=== PATIENT | male | born 1950 | race Caucasian/White ===

== ENCOUNTER 2019-10-13 09:01 | Outpatient (CLI) | payer MEDICARE, OTHER ==
[2019-10-13 09:34] LABS: BASOPHILS % (AUTO) 0.6 %; EOSINOPHILS # (AUTO) 0.1 10^3/uL (0.0-0.7); HGB - HEMOGLOBIN 15.4 g/dL (14.0-18.0); LYMPHOCYTES # (AUTO) 1.6 10^3/uL (1.5-3.5); LYMPHOCYTES % (AUTO) 24.4 %; MEAN CORPUSCULAR HEMOGLOBIN 29.4 pg (27.0-31.0); MEAN CORPUSCULAR HGB CONC 33.9 g/dL (32.0-36.0); MEAN CORPUSCULAR VOLUME 86.8 fL (80.0-94.0); MEAN PLATELET VOLUME 10.7 fL (7.4-11.4); MONOCYTES # (AUTO) 0.5 10^3/uL (0.0-1.0); MONOCYTES % (AUTO) 6.8 %; NEUTROPHILS # (AUTO) 4.3 10^3/uL (1.5-6.6); NEUTROPHILS % (AUTO) 65.7 %; PLT - PLATELET COUNT 172 10^3/uL (130-450); RED BLOOD COUNT 5.23 10^6/uL (4.70-6.10); RED CELL DISTRIBUTION WIDTH 14.3 % (12.0-15.0); WHITE BLOOD COUNT 6.6 x10^3/uL (4.8-10.8)
[2019-10-13 09:50] LABS: BUN - BLOOD UREA NITROGEN 21 mg/dL (6-20); CALCIUM 9.7 mg/dL (8.5-10.3); CARBON DIOXIDE - CO2 28 mmol/L (21-32); CHLORIDE 96 mmol/L (101-111); CHOL/HDL RATIO 4.4 (<5.0); CHOLESTEROL 127 mg/dL; CREATININE 0.8 mg/dL (0.6-1.2); GFR - MDRD 96 (>89); GLUCOSE 154 mg/dL (70-100); HDL CHOLESTEROL 29 mg/dL; SODIUM 138 mmol/L (135-145)
[2019-10-13 09:56] LABS: HB2 TOTAL 15.3 g/dL; HEMOGLOBIN A1C 0.86 g/dL; HEMOGLOBIN A1C % 7.3 % (4.6-6.2)
[2019-10-13 11:29] LABS: LDL CHOLESTEROL,DIRECT 42 mg/dL; LDLD/HDL RATIO 1.4 (<3.6)
== END 2019-10-13 09:02 | disposition home or self-care (01) ==
LOC: LAB 09:01
DX: E11.40 Type 2 diabetes mellitus with diabetic neuropathy, unspecified (principal); E78.5 Hyperlipidemia, unspecified; I10 Essential (primary) hypertension; E78.1 Pure hyperglyceridemia; R53.83 Other fatigue; Z12.5 Encounter for screening for malignant neoplasm of prostate
CPT/HCPCS: 36415; 80048; 80061; 83036; 83721; 85025; G0103; 84153

== ENCOUNTER 2019-12-26 19:17 | Outpatient (CLI) | payer MEDICARE, OTHER | END 2019-12-26 19:18 | disposition home or self-care (01) | LOC: COV 19:17 | PROVIDERS: ATTEND Family Medicine | DX: R50.9 Fever, unspecified (principal); J02.9 Acute pharyngitis, unspecified | CPT/HCPCS: 81599 ==

== ENCOUNTER 2021-03-15 08:15 | Outpatient (CLI) | payer MEDICARE, OTHER ==
[2021-03-15 08:54] LABS: BASOPHILS % (AUTO) 0.5 %; EOSINOPHILS # (AUTO) 0.2 10^3/uL (0.0-0.7); EOSINOPHILS % (AUTO) 3.1 %; HCT - HEMATOCRIT 44.2 % (42.0-52.0); HGB - HEMOGLOBIN 15.1 g/dL (14.0-18.0); LYMPHOCYTES # (AUTO) 1.7 10^3/uL (1.5-3.5); LYMPHOCYTES % (AUTO) 27.3 %; MEAN CORPUSCULAR HEMOGLOBIN 29.3 pg (27.0-31.0); MEAN CORPUSCULAR HGB CONC 34.2 g/dL (32.0-36.0); MEAN CORPUSCULAR VOLUME 85.7 fL (80.0-94.0); MONOCYTES # (AUTO) 0.4 10^3/uL (0.0-1.0); MONOCYTES % (AUTO) 6.3 %; NEUTROPHILS # (AUTO) 3.9 10^3/uL (1.5-6.6); NEUTROPHILS % (AUTO) 62.3 %; PLT - PLATELET COUNT 168 10^3/uL (130-450); RED BLOOD COUNT 5.16 10^6/uL (4.70-6.10); RED CELL DISTRIBUTION WIDTH 14.1 % (12.0-15.0); WHITE BLOOD COUNT 6.2 x10^3/uL (4.8-10.8)
[2021-03-15 09:05] LABS: ALBUMIN 4.2 g/dL (3.2-5.5); ALBUMIN/GLOBULIN RATIO 1.4 (1.0-2.2); BILIRUBIN,TOTAL 0.8 mg/dL (0.2-1.0); CALCIUM 9.9 mg/dL (8.5-10.3); CREATININE 0.7 mg/dL (0.6-1.2); POTASSIUM 3.9 mmol/L (3.5-5.0); TOTAL PROTEIN 7.3 g/dL (6.7-8.2)
[2021-03-15 09:17] LABS: MICROALBUMIN,URINE 28.8 mg/dL (0-300.0)
[2021-03-15 11:56] LABS: ESTIMATED AVERAGE GLUCOSE 160 mg/dL (70-100); HEMOGLOBIN A1c% 7.2 % (4.27-6.07)
== END 2021-03-15 08:16 | disposition home or self-care (01) ==
LOC: LAB 08:15
PROVIDERS: ATTEND Family Medicine
DX: Z00.00 Encounter for general adult medical examination without abnormal findings (principal); D12.6 Benign neoplasm of colon, unspecified; F51.02 Adjustment insomnia; J45.909 Unspecified asthma, uncomplicated; K63.5 Polyp of colon; L84 Corns and callosities; E11.40 Type 2 diabetes mellitus with diabetic neuropathy, unspecified; Z72.820 Sleep deprivation; K57.92 Diverticulitis of intestine, part unspecified, without perforation or abscess without bleeding; R04.0 Epistaxis; N52.9 Male erectile dysfunction, unspecified; R53.83 Other fatigue; K21.9 Gastro-esophageal reflux disease without esophagitis; E78.5 Hyperlipidemia, unspecified; I10 Essential (primary) hypertension; E78.1 Pure hyperglyceridemia; G47.33 Obstructive sleep apnea (adult) (pediatric); R80.9 Proteinuria, unspecified
CPT/HCPCS: 36415; 80053; 82043; 82570; 83036; 85025

== ENCOUNTER 2021-03-27 08:30 | Day surgery (SDC) | payer MEDICARE, OTHER ==
[2021-03-27] MEDS ORDERED: LACTATED RINGERS 1,000 ML IV ONE (08:59)
[2021-03-27] MEDS ORDERED: fentaNYL 250 MCG/5 ML VIAL ONE (09:51)
[2021-03-27] MEDS ORDERED: MIDAZOLAM 2 MG/2 ML VIAL ONE ×2 (09:51)
[2021-03-27] MEDS ORDERED: LACTATED RINGERS 500 ML IV ONE (10:29)
[2021-03-27 10:54] VITALS: BP 152/95
== END 2021-03-27 08:31 | disposition home or self-care (01) ==
LOC: SDS 08:30
PROVIDERS: ATTEND Surgery
DX: Z12.11 Encounter for screening for malignant neoplasm of colon (principal); K64.8 Other hemorrhoids; K64.4 Residual hemorrhoidal skin tags; K57.30 Diverticulosis of large intestine without perforation or abscess without bleeding; Z86.010 Personal history of colon polyps
CPT/HCPCS: G0105; J3010; J7120

== ENCOUNTER 2021-05-16 08:14 | Outpatient (CLI) | payer MEDICARE, OTHER ==
[2021-05-16 08:45] LABS: BASOPHILS % (AUTO) 0.5 %; EOSINOPHILS # (AUTO) 0.2 10^3/uL (0.0-0.7); EOSINOPHILS % (AUTO) 2.7 %; HCT - HEMATOCRIT 42.5 % (42.0-52.0); HGB - HEMOGLOBIN 14.9 g/dL (14.0-18.0); LYMPHOCYTES # (AUTO) 1.4 10^3/uL (1.5-3.5); LYMPHOCYTES % (AUTO) 24.9 %; MEAN CORPUSCULAR HEMOGLOBIN 30.1 pg (27.0-31.0); MEAN CORPUSCULAR HGB CONC 35.1 g/dL (32.0-36.0); MEAN CORPUSCULAR VOLUME 85.9 fL (80.0-94.0); MEAN PLATELET VOLUME 10.2 fL (7.4-11.4); MONOCYTES # (AUTO) 0.4 10^3/uL (0.0-1.0); MONOCYTES % (AUTO) 6.5 %; NEUTROPHILS # (AUTO) 3.6 10^3/uL (1.5-6.6); NEUTROPHILS % (AUTO) 64.9 %; PLT - PLATELET COUNT 169 10^3/uL (130-450); RED BLOOD COUNT 4.95 10^6/uL (4.70-6.10); RED CELL DISTRIBUTION WIDTH 14.1 % (12.0-15.0); WHITE BLOOD COUNT 5.5 x10^3/uL (4.8-10.8)
[2021-05-16 09:12] LABS: ALBUMIN 4.2 g/dL (3.2-5.5); ALBUMIN/GLOBULIN RATIO 1.4 (1.0-2.2); ALKALINE PHOSPHATASE 73 IU/L (42-121); ALT ALANINE AMINOTRANSFERASE 41 IU/L (10-60); AST ASPARTATE AMINOTRANSFERASE 25 IU/L (10-42); BUN - BLOOD UREA NITROGEN 25 mg/dL (6-20); CALCIUM 9.6 mg/dL (8.5-10.3); CARBON DIOXIDE - CO2 26 mmol/L (21-32); CHLORIDE 101 mmol/L (101-111); CHOL/HDL RATIO 6.1 (<5.0); CHOLESTEROL 178 mg/dL; CREATININE 0.9 mg/dL (0.6-1.2); GFR - MDRD 83 (>89); GLUCOSE 193 mg/dL (70-100); HDL CHOLESTEROL 29 mg/dL; POTASSIUM 3.7 mmol/L (3.5-5.0); SODIUM 139 mmol/L (135-145); TOTAL PROTEIN 7.2 g/dL (6.7-8.2); TRIGLYCERIDES 800 mg/dL
[2021-05-16 10:27] LABS: LDL CHOLESTEROL,DIRECT 33 mg/dL; LDLD/HDL RATIO 1.1 (<3.6)
[2021-05-16 10:36] LABS: ESTIMATED AVERAGE GLUCOSE 148 mg/dL (70-100); HEMOGLOBIN A1c% 6.8 % (4.27-6.07)
== END 2021-05-16 08:15 | disposition home or self-care (01) ==
LOC: LAB 08:14
PROVIDERS: ATTEND Family Medicine
DX: E11.9 Type 2 diabetes mellitus without complications (principal); E78.5 Hyperlipidemia, unspecified; I10 Essential (primary) hypertension; R97.20 Elevated prostate specific antigen [PSA]; R53.83 Other fatigue
CPT/HCPCS: 36415; 80053; 80061; 83036; 83721; 84153; 85025

== ENCOUNTER 2023-03-12 08:19 | Outpatient (CLI) | payer MEDICARE, OTHER ==
[2023-03-12 08:35] LABS: BASOPHILS % (AUTO) 0.8 %; EOSINOPHILS # (AUTO) 0.1 10^3/uL (0.0-0.7); EOSINOPHILS % (AUTO) 2.3 %; HCT - HEMATOCRIT 41.1 % (42.0-52.0); HGB - HEMOGLOBIN 14.8 g/dL (14.0-18.0); LYMPHOCYTES # (AUTO) 1.3 10^3/uL (1.5-3.5); LYMPHOCYTES % (AUTO) 27.5 %; MEAN CORPUSCULAR HEMOGLOBIN 29.9 pg (27.0-31.0); MEAN PLATELET VOLUME 10.2 fL (7.4-11.4); MONOCYTES # (AUTO) 0.3 10^3/uL (0.0-1.0); MONOCYTES % (AUTO) 6.3 %; NEUTROPHILS # (AUTO) 2.9 10^3/uL (1.5-6.6); NEUTROPHILS % (AUTO) 62.3 %; PLT - PLATELET COUNT 161 10^3/uL (130-450); RED BLOOD COUNT 4.95 10^6/uL (4.70-6.10); RED CELL DISTRIBUTION WIDTH 13.7 % (12.0-15.0); WHITE BLOOD COUNT 4.7 x10^3/uL (4.8-10.8)
[2023-03-12 09:07] LABS: MICROALBUMIN,URINE 44.3 mg/dL (0-300.0)
[2023-03-12 09:31] LABS: ALBUMIN 3.6 g/dL (3.2-5.5); ALBUMIN/GLOBULIN RATIO 1.1 (1.0-2.2); ALKALINE PHOSPHATASE 78 IU/L (42-121); ALT ALANINE AMINOTRANSFERASE 37 IU/L (10-60); AST ASPARTATE AMINOTRANSFERASE 23 IU/L (10-42); BILIRUBIN,TOTAL 0.8 mg/dL (0.2-1.0); BUN - BLOOD UREA NITROGEN 26 mg/dL (6-20); CALCIUM 9.4 mg/dL (8.5-10.3); CARBON DIOXIDE - CO2 25 mmol/L (21-32); CHLORIDE 95 mmol/L (101-111); CHOL/HDL RATIO 12.9 (<5.0); CHOLESTEROL 347 mg/dL; GFR - MDRD 73 (>89); GLUCOSE 324 mg/dL (70-100); HDL CHOLESTEROL 27 mg/dL; POTASSIUM 3.6 mmol/L (3.5-5.0); SODIUM 131 mmol/L (135-145); TOTAL PROTEIN 6.8 g/dL (6.7-8.2)
[2023-03-12 09:39] LABS: TRIGLYCERIDES > 2000 mg/dL
[2023-03-12 09:57] LABS: LDL CHOLESTEROL,DIRECT 18 mg/dL; LDLD/HDL RATIO 0.7 (<3.6)
[2023-03-12 11:36] LABS: ESTIMATED AVERAGE GLUCOSE 237 mg/dL (70-100); HEMOGLOBIN A1c% 9.9 % (4.27-6.07)
== END 2023-03-12 08:20 | disposition home or self-care (01) ==
LOC: LAB 08:19
PROVIDERS: ATTEND Family Medicine
DX: I10 Essential (primary) hypertension (principal); E11.9 Type 2 diabetes mellitus without complications; R53.83 Other fatigue; E78.5 Hyperlipidemia, unspecified; E78.1 Pure hyperglyceridemia; R80.9 Proteinuria, unspecified
CPT/HCPCS: 36415; 80053; 80061; 82043; 82570; 83036; 83721; 84443; 85025

== ENCOUNTER 2023-07-23 08:28 | Outpatient (CLI) | payer MEDICARE, OTHER ==
[2023-07-23 09:05] LABS: ALBUMIN 4.3 g/dL (3.2-5.5); ALBUMIN/GLOBULIN RATIO 1.5 (1.0-2.2); BILIRUBIN,TOTAL 0.6 mg/dL (0.2-1.0); CALCIUM 9.9 mg/dL (8.5-10.3); POTASSIUM 3.8 mmol/L (3.5-4.5); TOTAL PROTEIN 7.1 g/dL (6.4-8.9)
[2023-07-23 12:23] LABS: ESTIMATED AVERAGE GLUCOSE 192 mg/dL (70-100); HEMOGLOBIN A1c% 8.3 % (4.27-6.07)
== END 2023-07-23 08:29 | disposition home or self-care (01) ==
LOC: LAB 08:28
PROVIDERS: ATTEND Family Medicine
DX: E11.9 Type 2 diabetes mellitus without complications (principal); R53.83 Other fatigue; I10 Essential (primary) hypertension
CPT/HCPCS: 36415; 80053; 83036

== ENCOUNTER 2023-10-15 10:34 | Outpatient (CLI) | payer MEDICARE, OTHER ==
--- NOTE | 2023-10-15 12:47 | XRAY Report ---
PROCEDURE: Shoulder 2+V LT INDICATIONS: SHOULDER PAIN TECHNIQUE: 3 views of the shoulder were acquired. COMPARISON: None. FINDINGS: Bones: No fractures or dislocations. Mild degenerative changes of the glenohumeral and acromioclavi cular joints. No suspicious bony lesions. Visualized ribs appear intact. Soft tissues: Tiny focus of calcification near the greater tuberosity.. The visualized lungs are wi thin normal limits. IMPRESSION: No acute bony abnormality. Mild degenerative changes of the glenohumeral and acromioclavicular joints . Possible calcific tendinitis of the rotator cuff. Reviewed by: Danilo Newton MD on 10/15/2023 12:46 PM PST Approved by: Danilo Newton MD on 10/15/2023 12:46 PM [facility] Station ID: [id number]
== END 2023-10-15 10:35 | disposition home or self-care (01) ==
LOC: DI 10:34
PROVIDERS: ATTEND Family Medicine
DX: M19.012 Primary osteoarthritis, left shoulder (principal)

== ENCOUNTER 2023-12-01 10:27 | Emergency (ER) | payer MEDICARE, OTHER ==
[2023-12-01 11:22] LABS: BASOPHILS % (AUTO) 0.5 %; EOSINOPHILS # (AUTO) 0.1 10^3/uL (0.0-0.7); EOSINOPHILS % (AUTO) 1.2 %; HCT - HEMATOCRIT 44.8 % (42.0-52.0); HGB - HEMOGLOBIN 15.5 g/dL (14.0-18.0); LYMPHOCYTES # (AUTO) 1.6 10^3/uL (1.5-3.5); LYMPHOCYTES % (AUTO) 23.7 %; MEAN CORPUSCULAR HEMOGLOBIN 28.5 pg (27.0-31.0); MEAN CORPUSCULAR HGB CONC 34.6 g/dL (32.0-36.0); MEAN CORPUSCULAR VOLUME 82.4 fL (80.0-94.0); MEAN PLATELET VOLUME 10.4 fL (7.4-11.4); MONOCYTES # (AUTO) 0.4 10^3/uL (0.0-1.0); MONOCYTES % (AUTO) 5.6 %; NEUTROPHILS # (AUTO) 4.5 10^3/uL (1.5-6.6); NEUTROPHILS % (AUTO) 68.4 %; PLT - PLATELET COUNT 219 10^3/uL (130-450); RED BLOOD COUNT 5.44 10^6/uL (4.70-6.10); RED CELL DISTRIBUTION WIDTH 13.8 % (12.0-15.0); WHITE BLOOD COUNT 6.6 x10^3/uL (4.8-10.8)
[2023-12-01 11:36] LABS: ALBUMIN 3.7 g/dL (3.2-5.5); ALBUMIN/GLOBULIN RATIO 1.3 (1.0-2.2); BILIRUBIN,TOTAL 0.7 mg/dL (0.2-1.0); CALCIUM 9.9 mg/dL (8.5-10.3); CREATININE 1.1 mg/dL (0.6-1.3); POTASSIUM 3.7 mmol/L (3.5-4.5); TOTAL PROTEIN 6.6 g/dL (6.4-8.9)
--- NOTE | 2023-12-01 11:58 | ED Physician Documentation ---
History of Present Illness - Stated complaint Stated Complaint: LWR BACK PX - Chief complaint Chief Complaint: Abd Pain - Additonal information Additional information: 73-year-old female with history of hypertension, hypercholesterolemia, type 2 diabetes, GERD presents emergency department for left flank pain. Patient says is been going on for about a week now is very localized to 1 specific point in his left flank area, the pain comes and goes but he has been noticing over the last couple days the pain has not been coming and going is been staying constantly. He said that he is taken multiple doses of Tylenol with little to no relief he had some leftover oxycodone from previous surgery he said that he took 1 of those which did significantly help with the pain but he tries to avoid opioids at all costs. He denies any fevers or chills no change in urinary frequency or habits no diarrhea. He does endorse some nausea vomiting due to the severity of the pain he has no history of kidney stones or kidney disease PD PAST MEDICAL HISTORY - Past Medical History Cardiovascular: Hypertension, High cholesterol Respiratory: None Endocrine/Autoimmune: Type 2 diabetes GI: GERD, Colon polyps, Diverticulitis : Frequency Psych: None Musculoskeletal: Osteoarthritis Derm: None - Past Surgical History Past Surgical History: Yes General: Colonoscopy HEENT: Tonsil/Adenoidectomy Derm: Skin cancer surgery - Present Medications Home Medications: Ambulatory Orders Medication Instructions Recorded Confirmed Amlodipine Besylate [Norvasc] 5 mg PO 03/27/21 Aspirin [Chambers Aspirin] 81 mg PO DAILY 03/27/21 03/27/21 Atorvastatin Calcium [Lipitor] 80 mg PO DAILY 03/27/21 03/27/21 Empagliflozin [Jardiance] 1 tab PO DAILY 03/27/21 03/27/21 Glimepiride [Amaryl] 1 tab PO DAILY 03/27/21 03/27/21 Losartan/Hydrochlorothiazide 1 tab PO DAILY 03/27/21 03/27/21 [Hyzaar 100-25 Tablet] Metformin HCl [Metformin ER 2 tab PO BID 03/27/21 03/27/21 Gastric] Metoprolol Succinate [Kapspargo 1 tab PO DAILY 03/27/21 03/27/21 Sprinkle] Pantoprazole [Protonix] 40 mg PO DAILY 03/27/21 03/27/21 hydroCHLOROthiazide [Hydrodiuril] 1 tab PO DAILY 03/27/21 03/27/21 Tamsulosin [Flomax] 0.4 mg PO DAILY #30 12/01/23 oxyCODONE [Roxicodone] 5 mg PO Q4-6H PRN #15 tablet 12/01/23 - Allergies Allergies/Adverse Reactions: Allergies Allergy/AdvReac Type Severity Reaction Status Date / Time tetracycline AdvReac Nausea Verified 12/01/23 10:58 - Social History Does the pt smoke?: No Smoking Status: Never smoker Does the pt drink ETOH?: No Does the pt have substance abuse?: No - POLST Patient has POLST: No PD ED PE NORMAL - Vitals Vital signs reviewed: Yes - General General: Alert and oriented X 3, No acute distress, Well developed/nourished - HEENT HEENT: Atraumatic, PERRL - Neck Neck: No bony TTP - Cardiac Cardiac: RRR, No murmur, No gallop - Respiratory Respiratory: No respiratory distress, Clear bilaterally - Abdomen Abdomen: Normal bowel sounds - Back Back: Other (left CVA tenderness) - Extremities Extremities: No deformity, No edema - Psych Psych: Normal mood, Normal affect Results - Vitals Vitals: Vital Signs - 24 hr 12/01/23 12/01/23 12/01/23 10:47 13:11 14:12 Temperature 36.6 C Heart Rate 109 H 108 H 97 Respiratory 18 25 H 26 H Rate Blood Pressure 218/127 H 181/117 H O2 Saturation 99 99 97 Oxygen O2 Source Room air - Labs Labs: Laboratory Tests 12/01/23 12/01/23 12/01/23 11:15 11:15 11:15 WBC 6.6 RBC 5.44 Hgb 15.5 Hct 44.8 MCV 82.4 MCH 28.5 MCHC 34.6 RDW 13.8 Plt Count 219 MPV 10.4 Neut # (Auto) 4.5 Lymph # (Auto) 1.6 Wheeler # (Auto) 0.4 Eos # (Auto) 0.1 Baso # (Auto) 0.0 Absolute Nucleated RBC 0.00 Nucleated RBC % 0.0 Sodium 131 L Potassium 3.7 Chloride 96 L Carbon Dioxide 23 Anion Gap 12.0 BUN 25 H Creatinine 1.1 Estimated GFR (MDRD) 66 L Glucose 285 H Calcium 9.9 Magnesium 1.7 Total Bilirubin 0.7 AST 16 ALT 25 Alkaline Phosphatase 69 Total Protein 6.6 Albumin 3.7 Globulin 2.9 Albumin/Globulin Ratio 1.3 Lipase 51 - Rads (name of study) CT KUB Relevant Findings:: Final report received, EMP independent interpretation of test, Other (Multiple findings, hepatic steatosis, gallstones, diverticulosis, umbilical hernia, bilateral inguinal hernia, right renal mass 3.5 cm, no hydronephrosis, left 7 mm kidney stone in mid) PD Medical Decision Making - ED course ED course: 73-year-old male presents emergency department for left flank pain. CT was complete which found multiple incidental findings including hepatic steatosis, cholelithiasis without cholecystitis, diverticulosis, umbilical hernia, bilateral inguinal hernia. Most pertinent finding was that patient was found to have bilateral renal cyst, a right 7 mm kidney stone in the midpole as well as a right kidney mass measuring about 3.5 cm. Patient was informed of these findings he was told that he needs to follow-up with nephrology soon as possible outpatient for further workup and evaluation of possible neoplasm.Labs are collected there is no leukocytosis his sodium was found to be slightly on the low side, 131 he was given 1 L of IV fluids for his BUN of 25, GFR 66. Patient has close contact with his primary care provider he was told to follow-up with them soon as possible about today's findings and he was given nephrology contact information for further evaluation.ER return precautions given to patient he was sent home on Flomax and pain medications. I am prescribing a short course of short-acting opioid pain medication for this patient. I have reviewed the patients STICK PULLER and no concerning findings were noted. I have discussed that the opioids are for short term therapy only, and will not be refilled from the ED. Departure - Departure Disposition: 01 Home, Self Care Clinical Impression: Diverticulosis, Hepatic steatosis, Renal cyst, Renal calculi, Right renal mass, Hypertension Cholelithiasis Qualifiers: Cholelithiasis location: gallbladder Cholecystitis presence: without cholecystitis Biliary obstruction: without biliary obstruction Qualified Code(s): K80.20 - Calculus of gallbladder without cholecystitis without obstruction Umbilical hernia Qualifiers: Obstruction and gangrene presence: without obstruction or gangrene Qualified Code(s): K42.9 - Umbilical hernia without obstruction or gangrene Inguinal hernia Qualifiers: Obstruction and gangrene presence: without obstruction or gangrene Laterality: bilateral Recurrence: not specified as recurrent Qualified Code(s): K40.20 - Bilateral inguinal hernia, without obstruction or gangrene, not specified as recurrent Instructions: Kidney Stones Follow-Up: Perez Skinner MD [Provider Admit Priv/Credential] - Prescriptions: Tamsulosin [Flomax] 0.4 mg PO DAILY #30 oxyCODONE [Roxicodone] 5 mg PO Q4-6H PRN #15 tablet PRN Reason: Pain >8 Comments: Thank you for trusting us with your care we have completed a CT scan and have found quite a few incidental findings as listed below -Hepatic steatosis (fatty liver disease) -Cholelithiasis (gallstones) -Diverticulosis -Umbilical hernia -Bilateral inguinal hernia In regards to your kidneys we have found that you have cysts on both right and left kidneys, a 7 mm stone on your right kidney ureter and a 3.5 cm right kidney mass that we are concerned could be possible cancer. As we discussed it is very important that you follow-up with nephrology outpatient I have attached Dr. Skinner's contact information below and I would strongly encourage you to follow-up with his clinic outpatient. I would also encourage you to follow-up with your primary care provider about the above findings and as well as a possible urology referral. I have attached below the radiology findings for your personal records as well as rediscussed with your primary care provider. I am prescribing a short course of short-acting opioid pain medication for this patient. I have reviewed the patients STICK PULLER and no concerning findings were noted. I have discussed that the opioids are for short term therapy only, and will not be refilled from the ED. PT NAME: SHANIA GARDNER MR#: [id number] REG ER/ED AGE: 73 CI DT/TM: 12/01/23 PCP: FUNMILAYO MORRISON DO : 1950 ATT: SEX: M ORD: [facility] Cevallos CHECKROOM ATTENDANT EXAM: [id number] CT/KUB ([id number]) PROCEDURE: KUB INDICATIONS: left flank pain TECHNIQUE: A CT scan of the abdomen and pelvis was performed without the use of intravenous contrast. Images were recorded and evaluated at appropriate window settings. Reformats: coronal and sagittal. For radiation dose reduction, the following was used: automated exposure control, adjustment of mA and/or kV according to patient size. COMPARISON: None. FINDINGS: Image quality: Diagnostic. Kidneys and ureters: There is suggestion of large left peripelvic renal cyst measures 4.9 x 5.7 x 4.5 cm in size series 8 image 140 and series 4 image 145. 7 mm nonobstructing stone in mid pole right kidney. No hydronephrosis or hydroureter is seen. There is no significant perinephric fat stranding. Exophytic solid-appearing lesion involving mid to lower pole of right kidney measures 3.6 x 3.4 x 3.8 cm in size series 8 image 206 and series 4 image 129. Simple appearing exophytic cyst in upper pole right kidney is seen measures 1.8 cm in size series 4 image 143. Bladder: Bladder wall thickness is normal, accounting for underdistention. No calcified bladder stones. OTHER: Lower chest: Unremarkable. Liver: No contour-deforming mass. There is hepatomegaly. Moderate to severe hepatic steatosis is seen. Gallbladder and biliary tree: 4-5 calcified stones are seen in dependent portion of gallbladder lumen. No gallbladder wall thickening or pericholecystic fluid. Spleen: No splenomegaly. Pancreas: No pancreatic ductal dilation. Adrenals: No adrenal nodule. Stomach, bowel and peritoneum: No bowel distension. No pathologic free fluid. Appendix is visualized and is normal in size and appearance. Sigmoid diverticulosis is seen without sigmoid colon wall thickening or mesenteric fat stranding. Lymph nodes: No central or retroperitoneal adenopathy. Vessels: No infrarenal aortic aneurysm. Reproductive organs: Unremarkable. Pelvic lymph nodes: No adenopathy by size criteria. Bones: No aggressive osseous abnormality. Other: Small to moderate size umbilical hernia is seen containing fat only. Small bilateral inguinal hernia is seen containing fat only. IMPRESSION: 1. Simple appearing left peripelvic renal cyst. No left-sided hydronephrosis or hydroureter. 2. Nonobstructing stone in right renal pelvis. No right-sided hydronephrosis or hydroureter. Simple cyst in upper pole right kidney. 3.6 x 3.4 x 3.8 cm exophytic structure in lower pole right kidney and is isodense to adjacent right renal parenchyma. Finding is concerning for neoplastic process such as renal cell carcinoma. 3. Normal-appearing urinary bladder. 4. Hepatomegaly and moderate hepatic steatosis, no discrete hepatic lesion. Cholelithiasis without CT evidence of acute cholecystitis. 5. Normal appendix. No bowel obstruction or abnormal bowel wall thickening. Sigmoid diverticulosis without evidence of acute diverticulitis. No free fluid of free air. Reviewed by: Alec Haddad MD on 12/01/2023 12:46 PM PDT Approved by: Alec Haddad MD on 12/01/2023 12:46 PM PDT Forms: PCP List Discharge Date/Time: 12/01/23 14:19
--- NOTE | 2023-12-01 12:47 | CT Report ---
PROCEDURE: KUB INDICATIONS: left flank pain TECHNIQUE: A CT scan of the abdomen and pelvis was performed without the use of intravenous contrast. Images we re recorded and evaluated at appropriate window settings. Reformats: coronal and sagittal. For radiat ion dose reduction, the following was used: automated exposure control, adjustment of mA and/or kV ac cording to patient size. COMPARISON: None. FINDINGS: Image quality: Diagnostic. Kidneys and ureters: There is suggestion of large left peripelvic renal cyst measures 4.9 x 5.7 x 4.5 cm in size series 8 image 140 and series 4 image 145. 7 mm nonobstructing stone in mid pole right ki dney. No hydronephrosis or hydroureter is seen. There is no significant perinephric fat stranding. Ex ophytic solid-appearing lesion involving mid to lower pole of right kidney measures 3.6 x 3.4 x 3.8 c m in size series 8 image 206 and series 4 image 129. Simple appearing exophytic cyst in upper pole ri ght kidney is seen measures 1.8 cm in size series 4 image 143. Bladder: Bladder wall thickness is normal, accounting for underdistention. No calcified bladder stone s. OTHER: Lower chest: Unremarkable. Liver: No contour-deforming mass. There is hepatomegaly. Moderate to severe hepatic steatosis is seen . Gallbladder and biliary tree: 4-5 calcified stones are seen in dependent portion of gallbladder lumen . No gallbladder wall thickening or pericholecystic fluid. Spleen: No splenomegaly. Pancreas: No pancreatic ductal dilation. Adrenals: No adrenal nodule. Stomach, bowel and peritoneum: No bowel distension. No pathologic free fluid. Appendix is visualized and is normal in size and appearance. Sigmoid diverticulosis is seen without sigmoid colon wall thick ening or mesenteric fat stranding. Lymph nodes: No central or retroperitoneal adenopathy. Vessels: No infrarenal aortic aneurysm. Reproductive organs: Unremarkable. Pelvic lymph nodes: No adenopathy by size criteria. Bones: No aggressive osseous abnormality. Other: Small to moderate size umbilical hernia is seen containing fat only. Small bilateral inguinal hernia is seen containing fat only. IMPRESSION: 1. Simple appearing left peripelvic renal cyst. No left-sided hydronephrosis or hydroureter. 2. Nonobstructing stone in right renal pelvis. No right-sided hydronephrosis or hydroureter. Simple c yst in upper pole right kidney. 3.6 x 3.4 x 3.8 cm exophytic structure in lower pole right kidney and is isodense to adjacent right renal parenchyma. Finding is concerning for neoplastic process such as renal cell carcinoma. 3. Normal-appearing urinary bladder. 4. Hepatomegaly and moderate hepatic steatosis, no discrete hepatic lesion. Cholelithiasis without CT evidence of acute cholecystitis. 5. Normal appendix. No bowel obstruction or abnormal bowel wall thickening. Sigmoid diverticulosis wi thout evidence of acute diverticulitis. No free fluid of free air. Reviewed by: Alec Haddad MD on 12/01/2023 12:46 PM PDT Approved by: Alec Haddad MD on 12/01/2023 12:46 PM PDT Station ID: [id number]
[2023-12-01] MEDS: SODIUM CHLORIDE 0.9% 1,000 ML IV ONE (12:56)
[2023-12-01] MEDS: KETOROLAC 30 MG/ML VIAL IVP STA (12:56)
[2023-12-01 14:23] VITALS: BP 181/117; O2SAT 97
== END 2023-12-01 14:19 | disposition home or self-care (01) ==
LOC: ED 10:27
DX: K57.30 Diverticulosis of large intestine without perforation or abscess without bleeding (principal); K76.0 Fatty (change of) liver, not elsewhere classified; N28.1 Cyst of kidney, acquired; N20.0 Calculus of kidney; N28.89 Other specified disorders of kidney and ureter; K80.20 Calculus of gallbladder without cholecystitis without obstruction; K42.9 Umbilical hernia without obstruction or gangrene; K40.20 Bilateral inguinal hernia, without obstruction or gangrene, not specified as recurrent; I10 Essential (primary) hypertension; E78.00 Pure hypercholesterolemia, unspecified; E11.9 Type 2 diabetes mellitus without complications; Z86.010 Personal history of colon polyps; Z79.84 Long term (current) use of oral hypoglycemic drugs; Z79.82 Long term (current) use of aspirin; Z79.899 Other long term (current) drug therapy
CPT/HCPCS: 36415; 80053; 83690; 83735; 85025; 96374; 99284

== ENCOUNTER 2023-12-19 09:50 | Outpatient (CLI) | payer MEDICARE, OTHER ==
[~2023-12-19 09:50] MED LIST: GADOTERATE MEGLUMINE 10 MMOL/20 ML VIAL ONE; GADOTERATE MEGLUMINE 5 MMOL/10 ML VIAL ONE
[2023-12-19] MEDS: GADOTERATE MEGLUMINE 10 MMOL/20 ML VIAL IVP ONE (12:09)
--- NOTE | 2023-12-21 12:34 | MRI Report ---
PROCEDURE: Abdomen W/WO INDICATIONS: RENAL MASS CONTRAST: CLARISCAN 22.2 ML TECHNIQUE: Coronal ultra fast SE, axial 2D spoiled GE in- and [id number]; axial breath-hold T2 fast SE. Dynam ic axial ultra fast GE during the administration of contrast; post-contrast coronal ultra fast GE or 2D spoiled GE with fat saturation from the hepatic dome to the iliac crests. Optional diffusion weig hted imaging and ADC may be performed. COMPARISON: KUB 12/01/2023 FINDINGS: Image quality: Excellent. Lung bases and heart: Unremarkable. Liver: Mild hepatomegaly and significant hepatic steatosis. Gallbladder and biliary tree: Several dependent stones of varying sizes are present at the gallbladde r neck. No gallbladder wall thickening or pericholecystic edema. Biliary tree is nondilated. Spleen: No splenomegaly. Pancreas: No pancreatic ductal dilatation. Normal size and signal. Adrenals: No adrenal nodule. Kidneys and ureters: No simple appearing large left midpole parapelvic cyst is noted. No suspicious e nhancement. There is an exophytic unilocular mass measuring 4.3 cm arising from the lateral lower kwame e right kidney. This demonstrates fluid fluid level with hyperintense dependently layering material. This is mildly T2 hyperintense to adjacent renal parenchyma. Postcontrast, there is no visible nodula rity or thickened septation. No definite enhancement . A few other nonenhancing cortical cysts are pr esent in each kidney. There is mild right hydronephrosis without hydroureter. Hypointensity in the re nal pelvis is incidentally noted measuring about 0.9 cm. Bowel and peritoneum: Stomach and visible small bowel loops are normal. There is diverticulosis throu ghout the visible loops of colon. Lymph nodes: No central or retroperitoneal adenopathy. Vessels: No infrarenal aortic aneurysm. Bones: No aggressive osseous abnormality. Other: No significant ventral hernia. IMPRESSION: 4.3 cm nonenhancing exophytic right lower pole cystic mass with features most suggestive of a protein aceous/hemorrhagic cyst. No suspicious enhancing renal mass. Nonobstructing right intrapelvic calculus measuring 9 mm. Hepatomegaly and hepatic steatosis. Cholelithiasis. Reviewed by: Faustina Dye MD on 12/21/2023 12:33 PM PDT Approved by: Faustina Dye MD on 12/21/2023 12:33 PM PDT Station ID: [id number]
== END 2023-12-19 09:51 | disposition home or self-care (01) ==
LOC: DI 09:50
PROVIDERS: ATTEND Urology
DX: N28.1 Cyst of kidney, acquired (principal); N20.0 Calculus of kidney; K76.0 Fatty (change of) liver, not elsewhere classified; K80.20 Calculus of gallbladder without cholecystitis without obstruction; N13.30 Unspecified hydronephrosis
CPT/HCPCS: 74183; A9575